=== PATIENT | female | born 1960 | race Caucasian/White ===

== ENCOUNTER → 2016-07-30 | Outpatient (CLI) | payer OTHER ==
[~2016-07-30] MED LIST: /ESCI20TA; ABIL1TAB5 PO; ABIL5TAB; ACET500C; ALLE25CA; AUG875 PO; BENADRYL PO; CLAR10CA3 PO; DOXY100T; DOXYCYC100 PO; ESTR1TAB PO; FERROUS325 PO; FLAGYL500 PO; FLEXERIL PO; HYDR-4274 PO; IBUP600T; IBUP600T26 PO; MOTRIN6 PO; NABU750T; NAPR250T2 PO; NICO21DI4; PERC5TAB6 PO; PRIL40CA PO; PRILOSEC40 PO; PRILOSECOT PO; RALT40TA PO; SERT-138 PO; TOPAMAX PO; TOPI50TA; TRAM50TA2 PO; TRIU1TAB PO; TRUVTAB3 PO; TYLENOL500 PO; VIBR100C; ZOLO100T; ZOLO50TA; ZOLOFT50 PO
--- NOTE | 2016-07-30 14:34 | REPMRS ---
Patient History The patient states she had a clinical breast exam in 07/26 Patient is postmenopausal and has history of cervical cancer at age 43. Family history of breast cancer in mother at age 50 or over. Benign excisional biopsy of the right breast, 2003. Excisional biopsy. Digital Woman Screen Mammo: July 30, 2016 - Exam #: [id number] Bilateral CC and MLO view(s) were taken. Technologist: Ashly Corley, Technologist Prior study comparison: October 17, 2014, digital woman screen mammo performed at [facility]. January 17, 2010, bilateral digital woman screen mammo performed at [facility]. FINDINGS: There are scattered fibroglandular densities. There has been no change in the appearance of the mammogram from the prior studies. There is a mild amount of residual fibroglandular tissue which is fairly symmetric. There is no interval development of dominant mass, architectural distortion, or clustered microcalcification suggestive of malignancy. ASSESSMENT: BI-RADS/ACR category 1 mammogram. Negative. Recommendation Routine screening mammogram in 1 year (for women over age 40). This mammogram was interpreted with the aid of an FDA-approved computer-aided dectection system. Electronically Signed By: Favian Jarvis MD 07/30/16 [id number]
== END ==
LOC: M WHC 13:03
PROVIDERS: ATTEND Internal Medicine Infectious Disease
DX: Z12.11 Encounter for screening for malignant neoplasm of colon (principal); Z80.3 Family history of malignant neoplasm of breast; Z78.0 Asymptomatic menopausal state

== ENCOUNTER → 2016-09-23 | Outpatient (REF) | payer OTHER ==
[2016-09-23 16:21] LABS: ALBUMIN 3.9 GM/DL (3.2-5.2); ALBUMIN/GLOBULIN RATIO 1.05 (1.00-1.93); ALKALINE PHOSPHATASE 82 U/L (45-117); ALT/SGPT 25 U/L (12-78); ANION GAP 7 MEQ/L (8-16); AST/SGOT 13 U/L (15-37); BILIRUBIN,TOTAL 0.2 MG/DL (0.2-1.0); BLOOD UREA NITROGEN 12 MG/DL (7-18); CALCIUM LEVEL 9.3 MG/DL (8.5-10.1); CARBON DIOXIDE LEVEL 28 MEQ/L (21-32); CHLORIDE LEVEL 102 MEQ/L (98-107); CHOLESTEROL LEVEL 218 MG/DL (<200); CREATININE FOR GFR 0.76 MG/DL (0.55-1.02); GLOMERULAR FILTRATION RATE > 60.0 (>51); GLUCOSE, FASTING 89 MG/DL (70-105); POTASSIUM SERUM 4.2 MEQ/L (3.5-5.1); SODIUM LEVEL 137 MEQ/L (136-145); TOTAL PROTEIN 7.6 GM/DL (6.4-8.2); TRIGLYCERIDES LEVEL 157 MG/DL (<150)
[2016-09-26 14:18] LABS: %CD3+CD4+CD8- 38.5 % (Not Estab.); %CD3+CD4-CD8+ 36.6 % (Not Estab.); %CD3+CD4-CD8- 1.2 % (Not Estab.); ABS CD3+CD4+CD8+ 48 /uL (Not Estab.); ABS CD3+CD4+CD8- 924 /uL (Not Estab.); ABS CD3+CD4-CD8+ 878 /uL (Not Estab.); ABS CD3+CD4-CD8- 29 /uL (Not Estab.); CD4/CD8 NYSDOH RATIO 1.05 (Not Estab.); Eosinophils 2 % (.); HGB 15.2 g/dL (11.1-15.9); Monocytes 10 % (.); Neutrophils 57 % (.); WBC 7.7 x10E3/uL (3.4-10.8)
== END ==
LOC: M SFHCPLAZ 13:08
PROVIDERS: ATTEND Internal Medicine Infectious Disease
DX: B20 Human immunodeficiency virus [HIV] disease (principal); E78.00 Pure hypercholesterolemia, unspecified

== ENCOUNTER 2017-02-25 18:05 | Emergency (ER) | payer OTHER ==
[~2017-02-25] VITALS: Ht 160 cm; Wt 69.1 kg
[2017-02-25 18:05] VITALS: BP 109/74
[~2017-02-25 18:05] MED LIST changes: +ABIL10TA9 PO; -ABIL1TAB5 PO; -HYDR-4274 PO; +HYDR50TA70 PO; +IBUP-1022 PO; -IBUP600T26 PO; -NAPR250T2 PO; +NAPR250T4 PO; +PERC5TAB12 PO; -PERC5TAB6 PO; +TRUVTAB PO; -TRUVTAB3 PO
== END 2017-02-25 18:32 | disposition left against medical advice (07) ==
LOC: M ED 18:05
DX: M25.552 Pain in left hip (principal); Z53.29 Procedure and treatment not carried out because of patient's decision for other reasons

== ENCOUNTER 2017-03-03 23:56 | Emergency (ER) | payer OTHER ==
[~2017-03-03] VITALS: Ht 160 cm; Wt 63.3 kg
[2017-03-03 23:58] VITALS: BP 127/94
== END 2017-03-04 00:16 | disposition left against medical advice (07) ==
LOC: M ED 23:56
DX: Z53.21 Procedure and treatment not carried out due to patient leaving prior to being seen by health care provider (principal)

== ENCOUNTER → 2017-03-06 | Outpatient (REF) | payer OTHER ==
[2017-03-06 12:36] LABS: ALBUMIN 3.8 GM/DL (3.2-5.2); ALBUMIN/GLOBULIN RATIO 1.12 (1.00-1.93); ALKALINE PHOSPHATASE 73 U/L (45-117); ALT/SGPT 23 U/L (12-78); ANION GAP 6 MEQ/L (8-16); AST/SGOT 19 U/L (15-37); BILIRUBIN,TOTAL 0.4 MG/DL (0.2-1.0); BLOOD UREA NITROGEN 13 MG/DL (7-18); CALCIUM LEVEL 9.1 MG/DL (8.5-10.1); CARBON DIOXIDE LEVEL 29 MEQ/L (21-32); CHLORIDE LEVEL 102 MEQ/L (98-107); CREATININE FOR GFR 0.76 MG/DL (0.55-1.02); GLOMERULAR FILTRATION RATE > 60.0 (>51); GLUCOSE, FASTING 87 MG/DL (70-105); POTASSIUM SERUM 4.2 MEQ/L (3.5-5.1); SODIUM LEVEL 137 MEQ/L (136-145); TOTAL PROTEIN 7.2 GM/DL (6.4-8.2)
[2017-03-11 00:07] LABS: Eosinophils 3 % (Not Estab.); HCT 39.4 % (34.0-46.6); Lyme Disease IgG/IgM Antibodie <0.91 ISR (0.00-0.90); Lyme Disease IgM Ab Quantitati <0.80 index (0.00-0.79); Monocytes 9 % (Not Estab.); Neutrophils 56 % (Not Estab.); WBC 8.4 x10E3/uL (3.4-10.8)
== END ==
LOC: M LABDRAW1 11:35
PROVIDERS: ATTEND Internal Medicine Infectious Disease
DX: B20 Human immunodeficiency virus [HIV] disease (principal); M25.552 Pain in left hip

== ENCOUNTER → 2017-09-08 | Outpatient (REF) | payer OTHER ==
[2017-09-08 16:05] LABS: ALBUMIN 4.2 GM/DL (3.2-5.2); ALBUMIN/GLOBULIN RATIO 1.05 (1.00-1.93); ALKALINE PHOSPHATASE 85 U/L (45-117); ALT/SGPT 17 U/L (12-78); ANION GAP 8 MEQ/L (8-16); AST/SGOT 15 U/L (7-37); BILIRUBIN,TOTAL 0.4 MG/DL (0.2-1.0); BLOOD UREA NITROGEN 12 MG/DL (7-18); CALCIUM LEVEL 9.7 MG/DL (8.5-10.1); CARBON DIOXIDE LEVEL 26 MEQ/L (21-32); CHLORIDE LEVEL 104 MEQ/L (98-107); CREATININE FOR GFR 0.75 MG/DL (0.55-1.30); GLOMERULAR FILTRATION RATE > 60.0 (>51); GLUCOSE, FASTING 95 MG/DL (70-100); POTASSIUM SERUM 4.6 MEQ/L (3.5-5.1); SODIUM LEVEL 138 MEQ/L (136-145); TOTAL PROTEIN 8.2 GM/DL (6.4-8.2)
[2017-09-08 16:12] LABS: APPEARANCE, URINE HAZY (CLEAR); BACTERIA, URINE AUTO NEGATIVE (NEGATIVE); BILIRUBIN, URINE AUTO NEGATIVE (NEGATIVE); BLOOD, URINE BLOOD NEGATIVE (NEGATIVE); COLOR, URINE YELLOW (YELLOW); GLUCOSE, URINE (UA) AUTO NEGATIVE (NEGATIVE); KETONE, URINE AUTO TRACE mg/dL (NEGATIVE); LEUKOCYTE ESTERASE, URINE AUTO NEGATIVE (NEGATIVE); MUCUS, URINE SMALL (NEGATIVE); NITRITE, URINE AUTO NEGATIVE (NEGATIVE); PROTEIN, URINE AUTO NEGATIVE (NEGATIVE); RBC, URINE AUTO 1 /HPF (0-3); SPECIFIC GRAVITY URINE AUTO 1.021 (1.002-1.035); SQUAMOUS EPITHELIAL CELL UR AU 0 /HPF (0-6); WBC, URINE AUTO 0 /HPF (0-3)
[2017-09-08 17:14] LABS: CHLAMYDIA DNA AMPLIFICATION NEGATIVE (NEGATIVE); GC DNA AMPLIFICATION NEGATIVE (NEGATIVE)
[2017-09-10 10:11] LABS: QUANTIFERON GOLD TB Negative (Negative); TB Test (QFT) Antigen 0.05 IU/mL (.); TB Test (QFT) Antigen Minus Ni 0.01 IU/mL (.); TB Test (QFT) Mitogen >10.00 IU/mL (.); TB Test (QFT) Nil 0.04 IU/mL (.)
[2017-09-11 14:14] LABS: % CD8 Pos Lymph 39.4 % (12.0-35.5); %CD4 Pos Lymphs 39.2 % (30.8-58.5); ABS Basophils 0.1 x10E3/uL (0.0-0.2); ABS Eosinophils 0.2 x10E3/uL (0.0-0.4); ABS Lymphs 2.3 x10E3/uL (0.7-3.1); ABS Monocytes 0.7 x10E3/uL (0.1-0.9); ABS Neutophils 3.4 x10E3/uL (1.4-7.0); Abs CD4 Helper 902 /uL (359-1519); Abs CD8 Suppres 906 /uL (109-897); CD4/CD8 Ratio 0.99 (0.92-3.72); Eosinophils 3 % (Not Estab.); HCT 46.7 % (34.0-46.6); HGB 14.9 g/dL (11.1-15.9); HIV-1 RNA PCR QUANT 2 LC550285 80 copies/mL (.); HIV-1 RNA PCR QUANT 3 LC550285 1.903 (.); Immature Grans 0 % (Not Estab.); Lymphocytes 35 % (Not Estab.); MCH 32.5 pg (26.6-33.0); MCHC 31.9 g/dL (31.5-35.7); MCV 102 fL (79-97); Monocytes 11 % (Not Estab.); Neutrophils 50 % (Not Estab.); Platelets 241 x10E3/uL (150-379); RBC 4.59 x10E6/uL (3.77-5.28); RDW 15.3 % (12.3-15.4); WBC 6.6 x10E3/uL (3.4-10.8)
== END ==
LOC: M SFHCPLAZ 12:36
DX: B20 Human immunodeficiency virus [HIV] disease (principal)

== ENCOUNTER 2017-10-03 22:58 | Emergency (ER) | payer OTHER | END 2017-10-04 01:20 | disposition left against medical advice (07) | LOC: M ED 22:58 | DX: S09.90XA Unspecified injury of head, initial encounter (principal); Y04.8XXA Assault by other bodily force, initial encounter; Y92.9 Unspecified place or not applicable; Y93.9 Activity, unspecified; Y99.9 Unspecified external cause status; Z53.21 Procedure and treatment not carried out due to patient leaving prior to being seen by health care provider | CPT/HCPCS: 99281 ==

== ENCOUNTER → 2017-12-01 | Outpatient (REF) | payer OTHER ==
[2017-12-01 16:08] LABS: ALBUMIN 3.6 GM/DL (3.2-5.2); ALBUMIN/GLOBULIN RATIO 0.97 (1.00-1.93); ALKALINE PHOSPHATASE 73 U/L (45-117); ALT/SGPT 18 U/L (12-78); ANION GAP 8 MEQ/L (8-16); AST/SGOT 12 U/L (7-37); BASO # 0.1 10^3/uL (0.0-0.2); BASO % 0.8 % (0.0-1.0); BILIRUBIN,TOTAL 0.3 MG/DL (0.2-1.0); BLOOD UREA NITROGEN 10 MG/DL (7-18); CARBON DIOXIDE LEVEL 31 MEQ/L (21-32); CHLORIDE LEVEL 102 MEQ/L (98-107); CREATININE FOR GFR 0.67 MG/DL (0.55-1.30); EOS # 0.3 10^3/uL (0.0-0.50); EOS % 3.1 % (0.0-3.0); GLOMERULAR FILTRATION RATE > 60.0 (>51); GLUCOSE, FASTING 86 MG/DL (70-100); HEMATOCRIT 42.3 % (36.0-47.0); HEMOGLOBIN 14.3 g/dl (12.0-15.5); IMMATURE GRANULOCYTE % 0.4 % (0-3.0); LYMPH % 31.9 % (24.0-44.0); MEAN CORPUSCULAR HEMOGLOBIN 32.4 pg (27.0-33.0); MEAN CORPUSCULAR HGB CONC 33.8 g/dl (32.0-36.5); MEAN CORPUSCULAR VOLUME 95.9 fl (80.0-96.0); MONO # 0.8 10^3/uL (0.0-0.8); NEUTROPHILS # 5.1 10^3/uL (1.8-7.7); NEUTROPHILS % 54.8 % (36.0-66.0); PLATELET COUNT, AUTOMATED 249 10^3/uL (150-450); POTASSIUM SERUM 4.7 MEQ/L (3.5-5.1); RED BLOOD COUNT 4.41 10^6/uL (4.00-5.40); RED CELL DISTRIBUTION WIDTH 14.8 % (11.5-14.5); SODIUM LEVEL 141 MEQ/L (136-145); TOTAL PROTEIN 7.3 GM/DL (6.4-8.2); WHITE BLOOD COUNT 9.3 10^3/uL (4.0-10.0)
[2017-12-09 08:54] LABS: HIV-1 RNA PCR QUANT 2 LC550285 <20 copies/mL (.)
== END ==
LOC: M SFHCPLAZ 12:11
DX: B20 Human immunodeficiency virus [HIV] disease (principal); R10.84 Generalized abdominal pain

== ENCOUNTER → 2018-02-20 | Outpatient (CLI) | payer OTHER | LOC: M WHC 14:36 | DX: Z12.31 Encounter for screening mammogram for malignant neoplasm of breast (principal); Z80.3 Family history of malignant neoplasm of breast | CPT/HCPCS: 77067 ==

== ENCOUNTER → 2018-07-28 | Outpatient (REF) | payer OTHER ==
[2018-07-28 16:44] LABS: APPEARANCE, URINE HAZY (CLEAR); BACTERIA, URINE AUTO NEGATIVE (NEGATIVE); BILIRUBIN, URINE AUTO NEGATIVE (NEGATIVE); BLOOD, URINE BLOOD NEGATIVE (NEGATIVE); COLOR, URINE YELLOW (YELLOW); GLUCOSE, URINE (UA) AUTO NEGATIVE (NEGATIVE); KETONE, URINE AUTO TRACE mg/dL (NEGATIVE); LEUKOCYTE ESTERASE, URINE AUTO TRACE (NEGATIVE); MUCUS, URINE SMALL (NEGATIVE); NITRITE, URINE AUTO NEGATIVE (NEGATIVE); PROTEIN, URINE AUTO NEGATIVE (NEGATIVE); RBC, URINE AUTO 2 /HPF (0-3); SPECIFIC GRAVITY URINE AUTO 1.023 (1.002-1.035); SQUAMOUS EPITHELIAL CELL UR AU 2 /HPF (0-6); WBC, URINE AUTO 1 /HPF (0-3)
[2018-07-28 16:49] LABS: ALBUMIN 4.1 GM/DL (3.2-5.2); ALT/SGPT 27 U/L (12-78); BILIRUBIN,TOTAL 0.4 MG/DL (0.2-1.0); BLOOD UREA NITROGEN 17 MG/DL (7-18); CALCIUM LEVEL 9.7 MG/DL (8.5-10.1); CARBON DIOXIDE LEVEL 30 MEQ/L (21-32); CHLORIDE LEVEL 101 MEQ/L (98-107); CHOLESTEROL LEVEL 253 MG/DL (<200); CREATININE FOR GFR 0.89 MG/DL (0.55-1.30); GLOMERULAR FILTRATION RATE > 60.0 (>51); GLUCOSE, FASTING 98 MG/DL (70-100); HDL CHOLESTEROL 124 MG/DL (>40); LDL CHOLESTEROL 109 MG/DL (<100); NON-HDL-C 129 MG/DL; POTASSIUM SERUM 4.7 MEQ/L (3.5-5.1); SODIUM LEVEL 137 MEQ/L (136-145); TOTAL PROTEIN 8.2 GM/DL (6.4-8.2); TRIGLYCERIDES LEVEL 101 MG/DL (<150)
[2018-07-28 18:11] LABS: CHLAMYDIA DNA AMPLIFICATION NEGATIVE (NEGATIVE); GC DNA AMPLIFICATION NEGATIVE (NEGATIVE)
[2018-08-01 00:09] LABS: % CD8 Pos Lymph 37.7 % (12.0-35.5); %CD4 Pos Lymphs 38.8 % (30.8-58.5); ABS Basophils 0.1 x10E3/uL (0.0-0.2); ABS Eosinophils 0.1 x10E3/uL (0.0-0.4); ABS Lymphs 2.5 x10E3/uL (0.7-3.1); ABS Monocytes 0.8 x10E3/uL (0.1-0.9); ABS Neutophils 4.6 x10E3/uL (1.4-7.0); Abs CD4 Helper 970 /uL (359-1519); Abs CD8 Suppres 943 /uL (109-897); CD4/CD8 Ratio 1.03 (0.92-3.72); Eosinophils 2 % (Not Estab.); HCT 46.8 % (34.0-46.6); HGB 15.6 g/dL (11.1-15.9); HIV-1 RNA PCR QUANT 2 LC550285 <20 copies/mL (.); Immature Grans 0 % (Not Estab.); Lymphocytes 31 % (Not Estab.); MCH 32.7 pg (26.6-33.0); MCHC 33.3 g/dL (31.5-35.7); MCV 98 fL (79-97); Monocytes 10 % (Not Estab.); Neutrophils 56 % (Not Estab.); Platelets 207 x10E3/uL (150-379); RBC 4.77 x10E6/uL (3.77-5.28); RDW 13.9 % (12.3-15.4); WBC 8.1 x10E3/uL (3.4-10.8)
== END ==
LOC: M SFHCPLAZ 14:08
PROVIDERS: ATTEND Internal Medicine Infectious Disease
DX: B20 Human immunodeficiency virus [HIV] disease (principal); Z13.220 Encounter for screening for lipoid disorders

== ENCOUNTER 2018-11-10 23:07 | Emergency (ER) | payer OTHER ==
[~2018-11-10 23:07] MED LIST changes: -/ESCI20TA; +LEXA1TAB2
== END 2018-11-10 23:42 | disposition left against medical advice (07) ==
LOC: M ED 23:07
DX: Z53.29 Procedure and treatment not carried out because of patient's decision for other reasons (principal)

== ENCOUNTER → 2018-12-03 | Outpatient (CLI) | payer OTHER ==
[~2018-12-03] MED LIST changes: +CYCL10TA PO; +OMEP40CA2 PO
--- NOTE | 2018-12-03 16:06 | REP ---
CT of the left hand: Axial images are acquired helical scanning and a reformatted sagittal and coronal projections. Comparison is the plain film study of 12/01/2018. There are nondisplaced fractures at the bases of the proximal phalanges of the third, fourth and fifth digits as previously. By CT no intra-articular fractures are identified. There is no dislocation. There is palmar angulation at all fracture sites. Electronically Signed by Favian Ellis MD 12/03/2018 03:58 P
== END ==
LOC: M RAD 15:26
PROVIDERS: ATTEND Orthopaedic Surgery Hand Surgery
DX: S62.643D Nondisplaced fracture of proximal phalanx of left middle finger, subsequent encounter for fracture with routine healing (principal); S62.645D Nondisplaced fracture of proximal phalanx of left ring finger, subsequent encounter for fracture with routine healing; S62.647D Nondisplaced fracture of proximal phalanx of left little finger, subsequent encounter for fracture with routine healing; X58.XXXD Exposure to other specified factors, subsequent encounter

== ENCOUNTER → 2018-12-04 | Outpatient (CLI) | payer OTHER ==
--- NOTE | 2018-12-04 16:35 | ECGEPIP ---
[facility] Test Date: 2018-12-04 Pat Name: LORENE NAVAS Department: Room: - Gender: Female Bilingual Operator: SANDI : 1960 Requested By: CATARINA Sexton Order Number: [id number] Reading MD: Pierre Liu Measurements Intervals [place] Rate: 79 P: 50 [place]: 157 QRS: 74 QRSD: 87 T: 76 QT: 365 QTc: 419 Interpretive Statements SINUS RHYTHM Normal ECG Electronically Signed on 12-04-2018 16:35:54 EDT by Pierre Liu
== END ==
LOC: M LAB 14:07 → M EKG 14:07
PROVIDERS: ATTEND Orthopaedic Surgery Hand Surgery
DX: Z01.810 Encounter for preprocedural cardiovascular examination (principal); S62.613A Displaced fracture of proximal phalanx of left middle finger, initial encounter for closed fracture; X58.XXXA Exposure to other specified factors, initial encounter; Y92.89 Other specified places as the place of occurrence of the external cause

== ENCOUNTER 2018-12-08 11:29 | Day surgery (SDC) | payer OTHER ==
[~2018-12-08] VITALS: Ht 160 cm; Wt 67.0 kg
[~2018-12-08 11:29] MED LIST changes: -CYCL10TA PO; +LIDOCAINE 1% MDV 20ML VIAL SQ PRN; +LR 1,000 ML IV ONE; -OMEP40CA2 PO
[2018-12-08] MEDS ORDERED: ROPIvacaine 0.5% 30 ML INJECTION (J2795 PER 1MG) ONE (11:30)
[2018-12-08] MEDS ORDERED: EPINEPHrine INJ 1 MG/ML 1ML AMP ONE (11:30)
[2018-12-08] MEDS ORDERED: dexameTHASONE 10 MG/1 ML VIAL PRES.FREE (J1100) ONE (11:30)
[2018-12-08] MEDS ORDERED: ceFAZolin 1GM INJ (J0690 PER 500MG) As Ordered ONE ×2 (12:40→13:13)
[2018-12-08] MEDS ORDERED: OMEP40CA2 PO (12:53)
[2018-12-08] MEDS ORDERED: CYCL10TA PO (12:53)
[2018-12-08] MEDS ORDERED: BUPIVACAINE HCL 0.5% 30 ML VIAL As Ordered ONE (13:34)
[2018-12-08] MEDS ORDERED: MIDAZOLAM INJ 2 MG/2 ML VIAL (J2250) As Ordered ONE ×3 (14:12→16:11)
[2018-12-08] MEDS ORDERED: PROPOFOL 200 MG/20 ML VIAL As Ordered ONE (14:12)
[2018-12-08] MEDS ORDERED: dexameTHASONE 4 MG/ML 1ML VIAL (J1100) As Ordered ONE (14:12)
[2018-12-08] MEDS ORDERED: LIDOCAINE 2% INJ 100 MG/5 ML SDV (FOR ANES.) As Ordered ONE (14:12)
[2018-12-08] MEDS ORDERED: ONDANSETRON 4MG/2ML VIAL (J2405) As Ordered ONE (14:12)
[2018-12-08] MEDS ORDERED: ACETAMINOPHEN 1000MG 100ML IV BTL (OFIRMEV) (J0131 PER 10MG) As Ordered ONE (14:12)
[2018-12-08] MEDS ORDERED: HYDROmorphone HCL 2 MG/ML 1ML VIAL (J1170) As Ordered ONE (14:12)
[2018-12-08] MEDS ORDERED: PHENYLephrine HCL 500 MCG/5 ML (100MCG/ML) SYRINGE (J2370) As Ordered ONE (14:39)
[2018-12-08] MEDS ORDERED: ePHEDrine SULFATE 25 MG/5 ML(5MG/ML) SYRINGE As Ordered ONE (14:40)
[2018-12-08] MEDS ORDERED: LABETALOL HCL 100 MG/20 ML VIAL As Ordered ONE (14:51)
[2018-12-08] MEDS: MORPHINE 10 MG/ML 1ML VIAL (J2270) IV PRN ×5 (15:27→16:10)
[2018-12-08] MEDS ORDERED: MORPHINE 10 MG/ML 1ML VIAL (J2270) As Ordered ONE (15:28)
[2018-12-08] MEDS ORDERED: LR 1,000 ML IV SCH (15:45)
[2018-12-08] MEDS ORDERED: PERCOCET 5MG/325MG TAB PO PRN (15:45)
[2018-12-08] MEDS ORDERED: ONDANSETRON 4MG/2ML VIAL (J2405) IV PRN (15:45)
[2018-12-08] MEDS ORDERED: fentaNYL 100 MCG/2 ML INJECTION (J3010) IV PRN (15:45)
[2018-12-08] MEDS ORDERED: fentaNYL 100 MCG/2 ML INJECTION (J3010) As Ordered ONE (15:49)
[2018-12-08] MEDS ORDERED: fentaNYL 250 MCG/5 ML INJECTION (J3010) As Ordered ONE (15:56)
--- NOTE | 2018-12-08 16:06 | REP ---
Left hand: 26 views, intraprocedural radiography. History: ORIF. 22 seconds of fluoroscopy time is reported. Findings: A sequence of 26 last image hold fluoroscopically obtained spot radiographs document pinning of proximal phalangeal fractures of the long, ring and small fingers. Electronically Signed by Pacheco Fong MD 12/08/2018 04:33 P
--- NOTE | 2018-12-08 16:39 | RO ---
DATE OF PROCEDURE: 12/08/2018 PREOPERATIVE DIAGNOSIS: Left hand third, fourth and fifth malunion of the proximal phalanx, displaced POSTOPERATIVE DIAGNOSIS: Left hand third, fourth and fifth malunion of the proximal phalanx, displaced OPERATIVE PROCEDURE: Left third, fourth and fifth proximal phalanx malunion correction with open reduction, internal fixation. SURGEON: Lonny Olivier MD CUPOLA TAPPER: None. ANESTHESIA: General. ESTIMATED BLOOD LOSS: 5 mL COMPLICATIONS: None. INDICATION: This is a pleasant 68-year-old female that had a trip and fall back on November 10. She felt pain in her left hand, but assumed that it would get better, however, once the swelling resolved and her deformity was present, she finally presented to an orthopedic office approximately 4 to 5 weeks after the injury for evaluation. She understood the nature of her injury meaning that she would no longer be able to make a full fist and have significant dysfunction without operative intervention. She proceeded to agree with the plan for operative intervention. She understood the risks of this being bleeding, infection, malunion, nonunion, damage to surrounding structures, extensor lag, and hand stiffness. DESCRIPTION OF PROCEDURE: Patient was taken to the operating room and placed supine on the bed with a hand table under her left hand. The left hand was prepped and draped in the usual fashion. All areas padded well. A time-out was performed. A longitudinal incision was made over the third MCP identifying the extensor hook. This was incised longitudinally to open the MCP joint along with expose the proximal phalanx, at which point a significant amount of callus was encountered. That made it difficult to identify the original fracture. This had to be debrided significantly, sharply using curette and knife and osteotome along with using an elevator to help free up the distal fragment of the proximal phalanx. Once mobilized satisfactorily, we aligned and used 0.045 K-wires from a cross design from both the radial and ulnar condyles of the proximal phalanx to fixate the fracture and correct the malunion that had to be osteotomized to correct. This was confirmed on both AP and lateral x-rays. Once satisfactory reduction was attained, we turned our attention to the ring finger the procedure was repeated. There was a longitudinal incision to the skin. Identification of the extensor hook, opening of the extensor mechanism longitudinally in line with the fibers to expose the MCP joint capsule along with the proximal phalanx. Significant callus was encountered which had to be debrided using sharp #15 blade and baby rongeur and curettes to help mobilize the previous fracture. Once it was adequately mobilized, it was reduced and pinned in place with 0.045 K-wires once again, from the radial and ulnar condyles of the proximal phalanx. This was confirmed on the C-Arm. Then our attention was turned to the small digit. Same procedure, longitudinal incision over the MCP and proximal phalanx. Extensor hook identified, incised in line with the fibers to expose the MCP joint and the proximal phalanx. Significant callus was encountered that had to be debrided using curettes, knife and osteotome and elevator. Once it was mobilized adequately, it was reduced obtained with 0.045 K-wires. This was confirmed on mini C-Arm. At which point, the wound was thoroughly irrigated and debrided, cleared of all debris. The extensor mechanism was closed with #3-0 PDS and the skin incisions were closed with #4-0 Monocryl. 20cc of 0.5% marcaine was given as local block. There were pin caps placed on the pins after they were bent and secured. The patient was then placed in a dorsal blocking splint in the intrinsic plus safe position. Tourniquet was let down. Tourniquet time was 97 min. Fingers were warm and well perfused at the end of the procedure and taken to PACU without complication. POSTOPERATIVE PLAN: patient in the postoperative splint for first 2 weeks. Then transitioned to removable splint. Will pull the pins around 4 or 5 weeks depending on fracture healing evident on x-ray and physical exam. Pain was increased in the PACU to the point that anesthesia performed a peripheral nerve block. She is discharged home with postoperative medications of Percocet a total of 30 tablets given 1-2 tablets every 4-6 hours as needed for pain. BLADE
[2018-12-08] MEDS ORDERED: MIDAZOLAM INJ 2 MG/2 ML VIAL (J2250) IV SCH (16:45)
[2018-12-08 18:20] VITALS: BP 123/85
== END 2018-12-08 18:25 | disposition home or self-care (01) ==
LOC: M SDC 11:29
PROVIDERS: ATTEND Orthopaedic Surgery Hand Surgery
DX: S62.9 Unspecified fracture of hand (principal); K21.9 Gastro-esophageal reflux disease without esophagitis; M79.89 Other specified soft tissue disorders; B20 Human immunodeficiency virus [HIV] disease; F31.75 Bipolar disorder, in partial remission, most recent episode depressed; F12.90 Cannabis use, unspecified, uncomplicated; M50.30 Other cervical disc degeneration, unspecified cervical region; J44.9 Chronic obstructive pulmonary disease, unspecified; Z79.899 Other long term (current) drug therapy; F41.9 Anxiety disorder, unspecified; F17.210 Nicotine dependence, cigarettes, uncomplicated; F43.10 Post-traumatic stress disorder, unspecified; M50.20 Other cervical disc displacement, unspecified cervical region; Z88.8 Allergy status to other drugs, medicaments and biological substances; Z88.2 Allergy status to sulfonamides; F10.288 Alcohol dependence with other alcohol-induced disorder
CPT/HCPCS: 26735; 76000; J0131; J0690; J1100; J1170; J2250; J2270; J2370; J2405; J2795; J3010

== ENCOUNTER 2018-12-21 23:17 | Emergency (ER) | payer OTHER ==
[~2018-12-21] VITALS: Ht 160 cm; Wt 63.4 kg
[~2018-12-21 23:17] MED LIST changes: +CYCL10TA PO; -LIDOCAINE 1% MDV 20ML VIAL SQ PRN; -LR 1,000 ML IV ONE; +OMEP40CA2 PO
[2018-12-21 23:35] VITALS: BP 122/83
== END 2018-12-22 00:51 | disposition left against medical advice (07) ==
LOC: M ED 23:17
DX: G89.18 Other acute postprocedural pain (principal); R11.2 Nausea with vomiting, unspecified; F10.129 Alcohol abuse with intoxication, unspecified; Z53.21 Procedure and treatment not carried out due to patient leaving prior to being seen by health care provider

== ENCOUNTER → 2019-07-29 | Outpatient (REF) | payer OTHER ==
[~2019-07-29] MED LIST changes: -OMEP40CA2 PO; +OMEP40CA97 PO
[2019-07-29 18:12] LABS: APPEARANCE, URINE CLEAR (CLEAR); BACTERIA, URINE AUTO NEGATIVE (NEGATIVE); BILIRUBIN, URINE AUTO NEGATIVE (NEGATIVE); BLOOD, URINE BLOOD NEGATIVE (NEGATIVE); COLOR, URINE YELLOW (YELLOW); GLUCOSE, URINE (UA) AUTO NEGATIVE (NEGATIVE); KETONE, URINE AUTO NEGATIVE (NEGATIVE); LEUKOCYTE ESTERASE, URINE AUTO NEGATIVE (NEGATIVE); NITRITE, URINE AUTO NEGATIVE (NEGATIVE); PROTEIN, URINE AUTO NEGATIVE (NEGATIVE); RBC, URINE AUTO 2 /HPF (0-3); SPECIFIC GRAVITY URINE AUTO 1.012 (1.002-1.035); SQUAMOUS EPITHELIAL CELL UR AU 0 /HPF (0-6); UROBILINOGEN, URINE AUTO 0.2 mg/dL (0.0-2.0); WBC, URINE AUTO 1 /HPF (0-3)
[2019-07-29 18:18] LABS: ALBUMIN 3.8 GM/DL (3.2-5.2); ALT/SGPT 16 U/L (12-78); BILIRUBIN,TOTAL 0.3 MG/DL (0.2-1.0); BLOOD UREA NITROGEN 11 MG/DL (7-18); CALCIUM LEVEL 9.6 MG/DL (8.5-10.1); CARBON DIOXIDE LEVEL 29 MEQ/L (21-32); CHLORIDE LEVEL 105 MEQ/L (98-107); CHOLESTEROL LEVEL 233 MG/DL (<200); CHOLESTEROL RISK RATIO 3.281 (<5); CREATININE FOR GFR 0.73 MG/DL (0.55-1.30); GLOMERULAR FILTRATION RATE > 60.0 (>51); GLUCOSE, FASTING 92 MG/DL (70-100); HDL CHOLESTEROL 71 MG/DL (>40); LDL CHOLESTEROL 141 MG/DL (<100); NON-HDL-C 162 MG/DL; SODIUM LEVEL 139 MEQ/L (136-145); TOTAL PROTEIN 7.3 GM/DL (6.4-8.2); TRIGLYCERIDES LEVEL 104 MG/DL (<150)
[2019-07-29 20:28] LABS: CHLAMYDIA DNA AMPLIFICATION NEGATIVE (NEGATIVE); GC DNA AMPLIFICATION NEGATIVE (NEGATIVE)
== END ==
LOC: M SFHCPLAZ 14:04
PROVIDERS: ATTEND Internal Medicine Infectious Disease
DX: B20 Human immunodeficiency virus [HIV] disease (principal); E78.00 Pure hypercholesterolemia, unspecified; R53.83 Other fatigue

== ENCOUNTER 2019-11-25 11:56 | Emergency (ER) | payer OTHER ==
[~2019-11-25] VITALS: Ht 160 cm; Wt 63.6 kg
[~2019-11-25 11:56] MED LIST changes: +CYCL-707 PO; -CYCL10TA PO
[2019-11-25] MEDS ORDERED: GABA-843 (12:05)
[2019-11-25 14:01] VITALS: O2SAT 93
--- NOTE | 2019-11-25 14:18 | REP ---
REASON: Pain after trauma. The accompanying frontal view of the chest has been compared to the latest prior examination of 09/06/2014. The frontal view of the chest is unchanged from the prior exam showing no evidence of acute disease. Only three views of the right ribs were obtained. This limits the exam compared to a standard four-view rib series, however, the right 7th, 8th, and 9th ribs are fractured anteriorly. IMPRESSION: Rib fractures as described above. Electronically Signed by Enio Martines DO 11/25/2019 02:21 P
[2019-11-25] MEDS ORDERED: NORCO, ANEXSIA 5/325MG TABLET (HYDROcodone/ACETAMINOPHEN) PO ONE (14:30)
[2019-11-25] MEDS ORDERED: NORC1TAB7 PO (14:34)
[2019-11-25 14:43] VITALS: BP 168/92
--- NOTE | 2019-11-25 15:17 | REP ---
REASON: Trauma. PRIORS: None. TECHNIQUE: 4.5 mm contiguous transaxial sections were obtained from the skull base to the cerebral convexities with thin cuts through the posterior fossa without the administration of intravenous contrast. FINDINGS: The ventricles and sulci are consistent with the patient's age. There are no extra-axial fluid collections. There is no mass effect. The deep cerebral white matter is consistent with the patient's age. The orbital and petrous structures, cerebellopontine angles, and posterior fossa are unremarkable. The sella turcica, cavernous, and paracavernous structures are essentially unremarkable. The visualized portions of the paranasal sinuses and mastoid air cells are clear. Images of the skull base show no gross abnormality. IMPRESSION: Essentially unremarkable CT examination of the brain. Electronically Signed by Enio Martines DO 11/25/2019 04:14 P
--- NOTE | 2019-11-25 15:27 | REP ---
REASON: Decreased breath sounds on the right after trauma. COMPARISON: Comparison CT is 06/07/2014. The lack of intravenous contrast decreases the sensitivity of the exam. There is no significant change in the appearance of the mediastinum or pulmonary hilum. No mass or adenopathy has developed. There is no change in te appearance of the aortic root. The imaged upper abdomen is within normal limits. There are no pleural or pericardial effusions. Bone window technique through the examination shows right-sided rib fractures involving the 7th through and including the 11th ribs. Evaluation of the lung rivers again shows chronic bullous emphysematous changes with small parenchymal bulla and pleural blebs seen particularly in the upper lobes. There are a few bibasilar asymmetric densities likely subsegmental atelectatic changes. The lung rivers are otherwise stable. IMPRESSION: 1. Multiple right-sided rib fractures as described above. 2. Suspect subsegmental atelectatic changes in the lung bases. 3. Chronic emphysematous changes appearing stable from 06/07/2014. Electronically Signed by Enio Martines DO 11/25/2019 04:15 P
--- NOTE | 2019-11-25 20:40 | ECGEPIP ---
[facility] - ED Test Date: 2019-11-25 Pat Name: LORENE NAVAS Department: Room: - Gender: Female Exotic Dancer: BRADY : 1960 Requested By: Stacey Garcia Order Number: [id number] Reading MD: Yves Zheng Measurements Intervals [place] Rate: 67 P: 76 [place]: 147 QRS: 70 QRSD: 99 T: 70 QT: 415 QTc: 440 Interpretive Statements SINUS RHYTHM SIMILAR TO 12/04/18 Electronically Signed on 11-25-2019 20:40:08 EDT by Yves Zheng
== END 2019-11-25 14:44 | disposition home or self-care (01) ==
LOC: M ED 11:56
DX: S22.41XA Multiple fractures of ribs, right side, initial encounter for closed fracture (principal); W22.8XXA Striking against or struck by other objects, initial encounter; Y92.012 Bathroom of single-family (private) house as the place of occurrence of the external cause; I10 Essential (primary) hypertension; J44.9 Chronic obstructive pulmonary disease, unspecified; K21.9 Gastro-esophageal reflux disease without esophagitis; Z21 Asymptomatic human immunodeficiency virus [HIV] infection status; Z79.899 Other long term (current) drug therapy; Z88.1 Allergy status to other antibiotic agents; Z88.2 Allergy status to sulfonamides; Z88.8 Allergy status to other drugs, medicaments and biological substances

== ENCOUNTER 2019-11-27 04:31 | Emergency (ER) | payer OTHER ==
[~2019-11-27] VITALS: Ht 160 cm; Wt 65.2 kg
[~2019-11-27 04:31] MED LIST changes: +GABA-843; +NORC1TAB7 PO
[2019-11-27 04:32] VITALS: BP 127/69
[2019-11-27] MEDS ORDERED: QUET100T2 (04:41)
== END 2019-11-27 05:37 | disposition left against medical advice (07) ==
LOC: M ED 04:31
DX: Z53.21 Procedure and treatment not carried out due to patient leaving prior to being seen by health care provider (principal)

== ENCOUNTER → 2019-12-16 | Outpatient (REF) | payer OTHER ==
[~2019-12-16] MED LIST changes: +QUET100T2
[2020-02-01 12:56] LABS: HIV-1 RNA PCR QUANT 2 LC550285 SEE SEPARATE REPORT (NORMAL)
[2020-03-11 10:57] LABS: ALT/SGPT 13 U/L (12-78); BILIRUBIN,TOTAL 0.4 MG/DL (0.2-1.0); BLOOD UREA NITROGEN 11 MG/DL (7-18); CALCIUM LEVEL 9.6 MG/DL (8.5-10.1); CARBON DIOXIDE LEVEL 30 MEQ/L (21-32); CHLORIDE LEVEL 103 MEQ/L (98-107); CREATININE FOR GFR 0.77 MG/DL (0.55-1.30); GLOMERULAR FILTRATION RATE > 60.0 (>51); GLUCOSE, FASTING 90 MG/DL (70-100); POTASSIUM SERUM 5.1 MEQ/L (3.5-5.1); SODIUM LEVEL 136 MEQ/L (136-145)
== END ==
LOC: M SFHCPLAZ 14:55
PROVIDERS: ATTEND Internal Medicine Infectious Disease
DX: Z00.00 Encounter for general adult medical examination without abnormal findings (principal)

== ENCOUNTER 2020-01-03 21:17 | Emergency (ER) | payer OTHER ==
[~2020-01-03] VITALS: Ht 160 cm; Wt 61.3 kg
[2020-01-03 22:16] LABS: BASO # 0.1 10^3/uL (0.0-0.2); BASO % 0.5 % (0.0-1.0); EOS # 0.4 10^3/uL (0.0-0.5); EOS % 4.2 % (0.0-3.0); HEMATOCRIT 43.5 % (36.0-47.0); HEMOGLOBIN 14.8 g/dl (12.0-15.5); LYMPH # 4.3 10^3/uL (1.5-5.0); LYMPH % 42.3 % (24.0-44.0); MEAN CORPUSCULAR HEMOGLOBIN 32.7 pg (27.0-33.0); MEAN CORPUSCULAR VOLUME 96.2 fl (80.0-96.0); MONO # 0.8 10^3/uL (0.0-0.8); MONO % 8.3 % (0.0-5.0); NEUTROPHILS # 4.5 10^3/uL (1.5-8.5); NEUTROPHILS % 44.3 % (36.0-66.0); PLATELET COUNT, AUTOMATED 236 10^3/uL (150-450); RED BLOOD COUNT 4.52 10^6/uL (4.00-5.40); WHITE BLOOD COUNT 10.2 10^3/uL (4.0-10.0)
[2020-01-03 22:40] LABS: ALBUMIN 3.9 GM/DL (3.2-5.2); ALT/SGPT 21 U/L (12-78); BILIRUBIN,TOTAL 0.2 MG/DL (0.2-1.0); BLOOD UREA NITROGEN 11 MG/DL (7-18); CALCIUM LEVEL 9.6 MG/DL (8.5-10.1); CARBON DIOXIDE LEVEL 24 MEQ/L (21-32); CHLORIDE LEVEL 103 MEQ/L (98-107); CREATININE FOR GFR 0.67 MG/DL (0.55-1.30); GLOMERULAR FILTRATION RATE > 60.0 (>51); GLUCOSE, FASTING 92 MG/DL (70-100); POTASSIUM SERUM 3.5 MEQ/L (3.5-5.1); SODIUM LEVEL 137 MEQ/L (136-145); TOTAL PROTEIN 7.7 GM/DL (6.4-8.2)
[2020-01-03 22:48] LABS: HCG, SERUM QUALITATIVE NEGATIVE (NEGATIVE)
[2020-01-03] MEDS ORDERED: RALT40TA PO (23:34)
[2020-01-03] MEDS ORDERED: TRUVTAB PO (23:34)
[2020-01-03 23:47] VITALS: BP 118/60
[2020-01-04 13:48] LABS: HEPATITIS B SURFACE ANTIBODY POSITIVE (POSITIVE)
[2020-01-04 13:56] LABS: HEPATITIS B SURFACE ANTIGEN NEGATIVE (NEGATIVE)
[2020-01-04 14:36] LABS: HEPATITIS C VIRUS ABY INDEX 0.2 INDEX (<0.8)
[2020-01-07 06:03] LABS: HIV 1&2 SCREEN CENTAUR REACTIVE (NEGATIVE)
== END 2020-01-03 23:47 | disposition home or self-care (01) ==
LOC: M ED 21:17
DX: T76.21XA Adult sexual abuse, suspected, initial encounter (principal); Y07.03 Male partner, perpetrator of maltreatment and neglect; Y92.018 Other place in single-family (private) house as the place of occurrence of the external cause; J44.9 Chronic obstructive pulmonary disease, unspecified; Z21 Asymptomatic human immunodeficiency virus [HIV] infection status; Z79.899 Other long term (current) drug therapy; Z88.1 Allergy status to other antibiotic agents; Z88.2 Allergy status to sulfonamides; Z88.8 Allergy status to other drugs, medicaments and biological substances; F17.210 Nicotine dependence, cigarettes, uncomplicated
CPT/HCPCS: 36415; 80053; 84703; 85025; 86702; 86706; 86780; 86803; 87340; 87389; 99284; G0480

== ENCOUNTER → 2020-02-11 | Outpatient (REF) | payer OTHER | LOC: M SFHCWAGY 17:12 | PROVIDERS: ATTEND Nurse Practitioner Women's Health | DX: Z12.4 Encounter for screening for malignant neoplasm of cervix (principal) ==

== ENCOUNTER → 2020-02-11 | Outpatient (CLI) | payer OTHER ==
--- NOTE | 2020-02-11 16:22 | REPMRS ---
Patient History The patient states she had a clinical breast exam in 2019. Family history of breast cancer at age 50 or over in mother. Benign excisional biopsy of the right breast, 2003. Excisional biopsy. 3D TOMOSYNTHESIS WAS PERFORMED. [facility] lifetime risk for breast cancer is 14.6%. VOLPARA DENSITY B. Digital Woman Screen Mammo: February 11, 2020 - Exam #: [id number] Bilateral CC and MLO view(s) were taken. Technologist: Elda Flores, Technologist Prior study comparison: February 20, 2018, bilateral digital woman screen mammo performed at [facility]. July 30, 2016, digital woman screen mammo performed at [facility]. FINDINGS: The breast tissue is heterogeneously dense. This may lower the sensitivity of mammography. There has been no change in the appearance of the mammogram from the prior studies. There is a moderate amount of residual fibroglandular tissue which is fairly symmetric. There is no interval development of dominant mass, areas of architectural distortion, or clustered microcalcification typical of malignancy. Assessment: BI-RADS/ACR category 1 mammogram. Negative Mammogram. Recommendation Routine screening mammogram in 1 year (for women over age 40). This mammogram was interpreted with the aid of an FDA-approved computer-aided dectection system. Electronically Signed By: Favian Jarvis MD 02/11/20 1517
== END ==
LOC: M WHC 15:02
PROVIDERS: ATTEND Nurse Practitioner Women's Health
DX: Z12.31 Encounter for screening mammogram for malignant neoplasm of breast (principal)

== ENCOUNTER → 2020-07-01 | Outpatient (REF) | payer OTHER ==
[~2020-07-01] MED LIST changes: +GABA-282; -GABA-843
== END ==
LOC: M LAB REF 17:59
PROVIDERS: ATTEND Physician Assistant Medical
DX: R50.9 Fever, unspecified (principal); R53.83 Other fatigue

== ENCOUNTER → 2020-07-31 | Outpatient (REF) | payer OTHER ==
[~2020-07-31] MED LIST changes: +NAPR-849 PO; -NAPR250T4 PO
[2020-07-31 18:22] LABS: APPEARANCE, URINE HAZY (CLEAR); BACTERIA, URINE AUTO NEGATIVE (NEGATIVE); BILIRUBIN, URINE AUTO NEGATIVE (NEGATIVE); BLOOD, URINE BLOOD NEGATIVE (NEGATIVE); COLOR, URINE YELLOW (YELLOW); GLUCOSE, URINE (UA) AUTO NEGATIVE (NEGATIVE); KETONE, URINE AUTO TRACE mg/dL (NEGATIVE); LEUKOCYTE ESTERASE, URINE AUTO 1+ (NEGATIVE); MUCUS, URINE SMALL (NEGATIVE); NITRITE, URINE AUTO NEGATIVE (NEGATIVE); PROTEIN, URINE AUTO 1+ mg/dL (NEGATIVE); RBC, URINE AUTO 0 /HPF (0-3); SPECIFIC GRAVITY URINE AUTO 1.026 (1.002-1.035); SQUAMOUS EPITHELIAL CELL UR AU 1 /HPF (0-6); WBC, URINE AUTO 1 /HPF (0-3)
[2020-07-31 18:37] LABS: ALBUMIN 4.2 GM/DL (3.2-5.2); ALT/SGPT 14 U/L (12-78); BILIRUBIN,TOTAL 0.2 MG/DL (0.2-1.0); BLOOD UREA NITROGEN 21 MG/DL (7-18); CALCIUM LEVEL 9.3 MG/DL (8.5-10.1); CARBON DIOXIDE LEVEL 30 MEQ/L (21-32); CHLORIDE LEVEL 103 MEQ/L (98-107); CHOLESTEROL LEVEL 246 MG/DL (<200); CREATININE FOR GFR 0.68 MG/DL (0.55-1.30); GLOMERULAR FILTRATION RATE > 60.0 (>51); GLUCOSE, FASTING 81 MG/DL (70-100); HDL CHOLESTEROL 100 MG/DL (>40); LDL CHOLESTEROL 101 MG/DL (<100); NON-HDL-C 146 MG/DL; POTASSIUM SERUM 4.9 MEQ/L (3.5-5.1); SODIUM LEVEL 138 MEQ/L (136-145); TRIGLYCERIDES LEVEL 224 MG/DL (<150)
== END ==
LOC: M SFHCPLAZ 13:48
PROVIDERS: ATTEND Internal Medicine Infectious Disease
DX: B20 Human immunodeficiency virus [HIV] disease (principal); E78.00 Pure hypercholesterolemia, unspecified

== ENCOUNTER → 2021-03-01 | Outpatient (CLI) | payer OTHER ==
[~2021-03-01] MED LIST changes: +EMTR1TAB16 PO; +OMEP40CA4 PO; -OMEP40CA97 PO; -TRUVTAB PO
[2021-03-01 18:06] LABS: ALBUMIN 3.8 GM/DL (3.2-5.2); ALT/SGPT 16 U/L (12-78); BILIRUBIN,TOTAL 0.4 MG/DL (0.2-1.0); BLOOD UREA NITROGEN 13 MG/DL (7-18); CALCIUM LEVEL 9.4 MG/DL (8.8-10.2); CARBON DIOXIDE LEVEL 31 MEQ/L (21-32); CHLORIDE LEVEL 104 MEQ/L (98-107); CREATININE FOR GFR 0.79 MG/DL (0.55-1.30); GLOMERULAR FILTRATION RATE > 60.0 (>45); GLUCOSE, FASTING 91 MG/DL (70-100); POTASSIUM SERUM 3.8 MEQ/L (3.5-5.1); SODIUM LEVEL 138 MEQ/L (136-145); TOTAL PROTEIN 7.3 GM/DL (6.4-8.2)
[2021-03-05 16:08] LABS: % CD8 Pos Lymph 37.4 % (12.0-35.5); %CD4 Pos Lymphs 46.1 % (30.8-58.5); ABS Basophils 0.1 x10E3/uL (0.0-0.2); ABS Eosinophils 0.2 x10E3/uL (0.0-0.4); ABS Lymphs 2.6 x10E3/uL (0.7-3.1); ABS Monocytes 0.6 x10E3/uL (0.1-0.9); ABS Neutophils 3.5 x10E3/uL (1.4-7.0); Abs CD4 Helper 1199 /uL (359-1519); Abs CD8 Suppres 972 /uL (109-897); CD4/CD8 Ratio 1.23 (0.92-3.72); Eosinophils 2 % (Not Estab.); HCT 42.8 % (34.0-46.6); HGB 14.3 g/dL (11.1-15.9); HIV-1 RNA PCR QUANT 2 LC550285 30 copies/mL (.); HIV-1 RNA PCR QUANT 3 LC550285 1.477 (.); Immature Grans 0 % (Not Estab.); Lymphocytes 37 % (Not Estab.); MCH 33.1 pg (26.6-33.0); MCHC 33.4 g/dL (31.5-35.7); MCV 99 fL (79-97); Monocytes 8 % (Not Estab.); Neutrophils 52 % (Not Estab.); Platelets 210 x10E3/uL (150-450); RBC 4.32 x10E6/uL (3.77-5.28); WBC 6.8 x10E3/uL (3.4-10.8)
== END ==
LOC: M PLALAB 14:43
PROVIDERS: ATTEND Internal Medicine Infectious Disease
DX: B20 Human immunodeficiency virus [HIV] disease (principal)

== ENCOUNTER → 2021-09-06 | Outpatient (CLI) | payer OTHER ==
[2021-09-06 15:46] LABS: ALBUMIN 3.9 GM/DL (3.2-5.2); ALT/SGPT 19 U/L (12-78); BILIRUBIN,TOTAL 0.6 MG/DL (0.2-1.0); BLOOD UREA NITROGEN 10 MG/DL (7-18); CALCIUM LEVEL 9.5 MG/DL (8.8-10.2); CARBON DIOXIDE LEVEL 28 MEQ/L (21-32); CHLORIDE LEVEL 103 MEQ/L (98-107); CREATININE FOR GFR 0.73 MG/DL (0.55-1.30); GLOMERULAR FILTRATION RATE > 60.0 (>45); GLUCOSE, FASTING 75 MG/DL (70-100); POTASSIUM SERUM 4.8 MEQ/L (3.5-5.1); SODIUM LEVEL 138 MEQ/L (136-145); TOTAL PROTEIN 7.4 GM/DL (6.4-8.2)
== END ==
LOC: M PLALAB 13:40
PROVIDERS: ATTEND Internal Medicine Infectious Disease
DX: B20 Human immunodeficiency virus [HIV] disease (principal)

== ENCOUNTER → 2022-03-11 | Outpatient (CLI) | payer OTHER, MEDICAID ==
[2022-03-11 18:11] LABS: ALBUMIN 3.6 GM/DL (3.2-5.2); ALT/SGPT 19 U/L (12-78); BILIRUBIN,TOTAL 0.2 MG/DL (0.2-1.0); BLOOD UREA NITROGEN 12 MG/DL (7-18); CALCIUM LEVEL 9.9 MG/DL (8.8-10.2); CARBON DIOXIDE LEVEL 27 MEQ/L (21-32); CHLORIDE LEVEL 103 MEQ/L (98-107); CREATININE FOR GFR 0.62 MG/DL (0.55-1.30); GLOMERULAR FILTRATION RATE > 60.0 (>45); GLUCOSE, FASTING 80 MG/DL (70-100); POTASSIUM SERUM 4.4 MEQ/L (3.5-5.1); SODIUM LEVEL 136 MEQ/L (136-145); TOTAL PROTEIN 7.3 GM/DL (6.4-8.2)
[2022-03-11 19:42] LABS: HEPATITIS C VIRUS ABY INDEX < 0.0 INDEX (<0.8)
[2022-03-14 04:07] LABS: % CD8 Pos Lymph 36.3 % (12.0-35.5); %CD4 Pos Lymphs 47.8 % (30.8-58.5); ABS Basophils 0.1 x10E3/uL (0.0-0.2); ABS Eosinophils 0.3 x10E3/uL (0.0-0.4); ABS Lymphs 2.7 x10E3/uL (0.7-3.1); ABS Monocytes 0.8 x10E3/uL (0.1-0.9); ABS Neutophils 5.9 x10E3/uL (1.4-7.0); Abs CD4 Helper 1291 /uL (359-1519); Abs CD8 Suppres 980 /uL (109-897); CD4/CD8 Ratio 1.32 (0.92-3.72); Eosinophils 3 % (Not Estab.); HCT 43.9 % (34.0-46.6); HGB 14.5 g/dL (11.1-15.9); HIV-1 RNA PCR QUANT 2 LC550285 <20 copies/mL (.); Immature Grans 0 % (Not Estab.); Lymphocytes 28 % (Not Estab.); MCH 31.7 pg (26.6-33.0); MCV 96 fL (79-97); Monocytes 8 % (Not Estab.); Neutrophils 60 % (Not Estab.); Platelets 248 x10E3/uL (150-450); RBC 4.58 x10E6/uL (3.77-5.28); RDW 12.7 % (11.7-15.4); WBC 9.8 x10E3/uL (3.4-10.8)
== END ==
LOC: M PLALAB 14:25
PROVIDERS: ATTEND Internal Medicine Infectious Disease
DX: M54.31 Sciatica, right side (principal)

== ENCOUNTER → 2022-04-23 | Outpatient (CLI) | payer OTHER, MEDICAID | LOC: M SOG 08:08 | PROVIDERS: ATTEND Orthopaedic Surgery | DX: M54.50 Low back pain, unspecified (principal); M85.88 Other specified disorders of bone density and structure, other site; S32.019D Unspecified fracture of first lumbar vertebra, subsequent encounter for fracture with routine healing ==

== ENCOUNTER → 2022-05-24 | Outpatient (CLI) | payer OTHER | LOC: M PLARAD 12:32 | PROVIDERS: ATTEND Orthopaedic Surgery | DX: M48.56XA Collapsed vertebra, not elsewhere classified, lumbar region, initial encounter for fracture (principal) ==

== ENCOUNTER → 2022-06-12 | Outpatient (CLI) | payer OTHER | LOC: M WHC 12:56 | PROVIDERS: ATTEND Advanced Practice Midwife | DX: Z12.31 Encounter for screening mammogram for malignant neoplasm of breast (principal); Z13.820 Encounter for screening for osteoporosis; M85.89 Other specified disorders of bone density and structure, multiple sites; M85.851 Other specified disorders of bone density and structure, right thigh; M85.852 Other specified disorders of bone density and structure, left thigh ==

== ENCOUNTER → 2022-06-12 | Outpatient (REF) | payer OTHER | LOC: M PLALAB 15:03 | PROVIDERS: ATTEND Nurse Practitioner Family | DX: Z11.4 Encounter for screening for human immunodeficiency virus [HIV] (principal); Z12.72 Encounter for screening for malignant neoplasm of vagina ==

== ENCOUNTER → 2022-07-02 | Outpatient (CLI) | payer OTHER | LOC: M SOG 08:45 | PROVIDERS: ATTEND Orthopaedic Surgery | DX: M48.56XA Collapsed vertebra, not elsewhere classified, lumbar region, initial encounter for fracture (principal); M25.551 Pain in right hip ==

== ENCOUNTER 2023-01-21 00:49 | Emergency (ER) | payer OTHER ==
[~2023-01-21] VITALS: Ht 160 cm; Wt 62.1 kg
[2023-01-21 00:50] VITALS: BP 102/64; TEMP 98.1; O2SAT 94
== END 2023-01-21 02:06 | disposition left against medical advice (07) ==
LOC: M ED 00:49
DX: Z53.21 Procedure and treatment not carried out due to patient leaving prior to being seen by health care provider (principal)

== ENCOUNTER → 2023-03-18 | Outpatient (CLI) | payer OTHER ==
[2023-03-18 16:08] LABS: APPEARANCE, URINE CLEAR (CLEAR); BACTERIA, URINE AUTO NEGATIVE (NEGATIVE); BILIRUBIN, URINE AUTO NEGATIVE (NEGATIVE); BLOOD, URINE BLOOD NEGATIVE (NEGATIVE); COLOR, URINE STRAW (YELLOW); GLUCOSE, URINE (UA) AUTO NEGATIVE (NEGATIVE); KETONE, URINE AUTO NEGATIVE (NEGATIVE); LEUKOCYTE ESTERASE, URINE AUTO NEGATIVE (NEGATIVE); NITRITE, URINE AUTO NEGATIVE (NEGATIVE); PROTEIN, URINE AUTO NEGATIVE (NEGATIVE); RBC, URINE AUTO 0 /HPF (0-3); SPECIFIC GRAVITY URINE AUTO 1.008 (1.002-1.035); SQUAMOUS EPITHELIAL CELL UR AU 0 /HPF (0-6); UROBILINOGEN, URINE AUTO 0.2 mg/dL (0.0-2.0); WBC, URINE AUTO 1 /HPF (0-3)
[2023-03-18 16:32] LABS: ALBUMIN 3.7 G/DL (3.2-5.2); ALKALINE PHOSPHATASE 91 U/L (46-116); ALT/SGPT 17 U/L (7.0-40); AST/SGOT 15 U/L (<34); BILIRUBIN,TOTAL 0.4 MG/DL (0.3-1.2); BLOOD UREA NITROGEN 14 MG/DL (9-23); CALCIUM LEVEL 9.2 MG/DL (8.3-10.6); CARBON DIOXIDE LEVEL 27 MMOL/L (20-31); CHLORIDE LEVEL 105 MMOL/L (98-107); CHOLESTEROL LEVEL 209 MG/DL (<200); CHOLESTEROL RISK RATIO 2.73 (<5); CREATININE FOR GFR 0.67 MG/DL (0.55-1.30); GLOMERULAR FILTRATION RATE > 60.0 (>45); GLUCOSE, FASTING 68 MG/DL (74-106); HDL CHOLESTEROL 76.4 MG/DL (>40); HEMOGLOBIN A1c 5.1 % (4.0-6.0); LDL CHOLESTEROL 111.2 MG/DL (<100); NON-HDL-C 132.6 MG/DL; POTASSIUM SERUM 4.2 MMOL/L (3.5-5.1); SODIUM LEVEL 140 MMOL/L (136-145); TOTAL PROTEIN 7.3 G/DL (5.7-8.2); TRIGLYCERIDES LEVEL 107 MG/DL (<150)
[2023-03-18 16:34] LABS: HEPATITIS B SURFACE ANTIBODY POSITIVE (POSITIVE)
[2023-03-18 17:07] LABS: HEPATITIS C VIRUS ABY INDEX 0.05 INDEX (<0.8)
[2023-03-18 17:21] LABS: GC DNA AMPLIFICATION NEGATIVE (NEGATIVE)
== END ==
LOC: M PLALAB 13:20
PROVIDERS: ATTEND Internal Medicine Infectious Disease
DX: B20 Human immunodeficiency virus [HIV] disease (principal); E78.00 Pure hypercholesterolemia, unspecified

== ENCOUNTER → 2023-03-25 | Outpatient (CLI) | payer OTHER | LOC: M RAD 13:33 | PROVIDERS: ATTEND Physician Assistant | DX: Z12.2 Encounter for screening for malignant neoplasm of respiratory organs (principal); Z72.0 Tobacco use ==

== ENCOUNTER → 2023-11-12 | Outpatient (CLI) | payer OTHER | LOC: M OUTALCOH 08:18 | PROVIDERS: ATTEND Psychiatry & Neurology Psychiatry | DX: F10.20 Alcohol dependence, uncomplicated (principal); F14.20 Cocaine dependence, uncomplicated; F17.200 Nicotine dependence, unspecified, uncomplicated ==

== ENCOUNTER 2023-12-08 10:58 | Outpatient (RCR) | payer MEDICAID | END 2023-12-10 | LOC: M OUTALCOH 10:58 | PROVIDERS: ATTEND Psychiatry & Neurology Psychiatry | DX: F10.20 Alcohol dependence, uncomplicated (principal); F14.20 Cocaine dependence, uncomplicated; F12.10 Cannabis abuse, uncomplicated; F17.200 Nicotine dependence, unspecified, uncomplicated ==

== ENCOUNTER → 2023-12-08 | Outpatient (CLI) | payer MEDICAID, OTHER ==
[2023-12-08 15:39] LABS: ALBUMIN 3.7 G/DL (3.2-5.2); ALKALINE PHOSPHATASE 83 U/L (46-116); ALT/SGPT 12 U/L (7.0-40); AST/SGOT 9 U/L (<34); BILIRUBIN,TOTAL 0.4 MG/DL (0.3-1.2); BLOOD UREA NITROGEN 16 MG/DL (9-23); CALCIUM LEVEL 9.7 MG/DL (8.3-10.6); CARBON DIOXIDE LEVEL 30 MMOL/L (20-31); CHLORIDE LEVEL 103 MMOL/L (98-107); CREATININE FOR GFR 0.69 MG/DL (0.55-1.30); GLOMERULAR FILTRATION RATE > 60.0 (>45); GLUCOSE, FASTING 93 MG/DL (74-106); POTASSIUM SERUM 5.1 MMOL/L (3.5-5.1); SODIUM LEVEL 138 MMOL/L (136-145); TOTAL PROTEIN 6.9 G/DL (5.7-8.2)
[2023-12-09 14:09] LABS: % CD4+ LYMPHS 40.4 % (30.8-58.5); ABSOLUTE CD4 HELPER 1454 /uL (359-1519); BASOPHILS 1 % (Not Estab.); BASOPHILS ABSOLUTE 0.1 x10E3/uL (0.0-0.2); EOSINOPHILS 2 % (Not Estab.); EOSINOPHILS ABSOLUTE 0.2 x10E3/uL (0.0-0.4); HCT 40.2 % (34.0-46.6); HGB 13.2 g/dL (11.1-15.9); LYMPHOCYTES 40 % (Not Estab.); LYMPHOCYTES ABSOLUTE 3.6 x10E3/uL (0.7-3.1); MCH 31.6 pg (26.6-33.0); MCHC 32.8 g/dL (31.5-35.7); MCV 96 fL (79-97); MONOCYTES 8 % (Not Estab.); MONOCYTES ABSOLUTE 0.7 x10E3/uL (0.1-0.9); NEUTROPHILS 49 % (Not Estab.); NEUTROPHILS ABSOLUTE 4.3 x10E3/uL (1.4-7.0); PLT 251 x10E3/uL (150-450); RBC 4.18 x10E6/uL (3.77-5.28); RDW 13.7 % (11.7-15.4); WBC 8.9 x10E3/uL (3.4-10.8)
[2023-12-10 18:58] LABS: HIV-1 RNA PCR QUANT 2 <20 DETECTED copies/mL (NOT DETECTED); HIV-1 RNA PCR QUANT 3 <1.30 DETECTED (NOT DETECTED)
== END ==
LOC: M PLALAB 12:05
PROVIDERS: ATTEND Internal Medicine Infectious Disease
DX: B20 Human immunodeficiency virus [HIV] disease (principal)

== ENCOUNTER 2024-01-05 08:40 | Outpatient (RCR) | payer OTHER | END 2024-01-10 | LOC: M OUTALCOH 08:40 | PROVIDERS: ATTEND Psychiatry & Neurology Child & Adolescent Psychiatry | DX: F10.20 Alcohol dependence, uncomplicated (principal); F14.20 Cocaine dependence, uncomplicated; F12.10 Cannabis abuse, uncomplicated; F17.200 Nicotine dependence, unspecified, uncomplicated ==

== ENCOUNTER → 2024-08-17 | Outpatient (CLI) | payer OTHER ==
[~2024-08-17] MED LIST changes: +GABA-1172; -GABA-282
[2024-08-17 19:50] LABS: GC DNA AMPLIFICATION NEGATIVE (NEGATIVE)
[2024-08-18 09:04] LABS: APPEARANCE, URINE HAZY (CLEAR); BACTERIA, URINE AUTO 1+ (NEGATIVE); BILIRUBIN, URINE AUTO NEGATIVE (NEGATIVE); BLOOD, URINE BLOOD 1+ (NEGATIVE); COLOR, URINE YELLOW (YELLOW); GLUCOSE, URINE (UA) AUTO NEGATIVE (NEGATIVE); KETONE, URINE AUTO NEGATIVE (NEGATIVE); LEUKOCYTE ESTERASE, URINE AUTO 3+ (NEGATIVE); MUCUS, URINE SMALL (NEGATIVE); NITRITE, URINE AUTO NEGATIVE (NEGATIVE); PROTEIN, URINE AUTO NEGATIVE (NEGATIVE); RBC, URINE AUTO 2 /HPF (0-3); SPECIFIC GRAVITY URINE AUTO 1.011 (1.002-1.035); SQUAMOUS EPITHELIAL CELL UR AU 3 /HPF (0-6); UROBILINOGEN, URINE AUTO 0.2 mg/dL (0.0-2.0); WBC, URINE AUTO 9 /HPF (0-3)
== END ==
LOC: M PLALAB 13:38
PROVIDERS: ATTEND Internal Medicine Infectious Disease
DX: B20 Human immunodeficiency virus [HIV] disease (principal); E78.00 Pure hypercholesterolemia, unspecified

== ENCOUNTER → 2025-02-17 | Outpatient (REF) | payer OTHER ==
[~2025-02-17] MED LIST changes: -IBUP-1022 PO; +IBUP600T42 PO
[2025-02-17 18:02] LABS: ALT/SGPT 15.0 U/L (7.0-40); AST/SGOT 20.0 U/L (<34); CALCIUM LEVEL 9.7 MG/DL (8.3-10.6); CARBON DIOXIDE LEVEL 30.0 MMOL/L (20-31); CHLORIDE LEVEL 100.0 MMOL/L (98-107); CREATININE FOR GFR 0.81 MG/DL (0.55-1.30); GLOMERULAR FILTRATION RATE 81.0 (>45); POTASSIUM SERUM 4.8 MMOL/L (3.5-5.1); SODIUM LEVEL 139.0 MMOL/L (136-145)
== END ==
LOC: M SFHCPLAZ 13:08
PROVIDERS: ATTEND Internal Medicine Infectious Disease
DX: B20 Human immunodeficiency virus [HIV] disease (principal)